=== PATIENT | female | born 1965 | race Caucasian/White ===

== ENCOUNTER 2021-05-21 15:24 | Outpatient (CLI) | payer OTHER, SELFPAY ==
--- NOTE | 2021-05-21 15:27 | MM_ITS ---
WS: [email or web address] BILATERAL SCREENING MAMMOGRAM WITH FEDERICO DISPLACEMENT VIEWS. CAD PERFORMED. HISTORY: SCREENING COMPARISON: 03/03/2017 and 03/20/2013 Bilateral craniocaudal and mediolateral like views are performed. Federico displacement views in CC and MLO projection also performed. Breasts composition: There are scattered areas of fibroglandular density. Implants are retropectoral and intact. No suspicious masses or calcifications. No architectural disto rtion. MM/[place] [id number] IMPRESSION: BI-RADS: 2-Benign FOLLOW-UP: 1 Year Follow-up
== END 2021-05-21 15:25 | disposition home or self-care (01) ==
LOC: RADSHAW 15:26
PROVIDERS: PCP Electrodiagnostic Medicine; Visit Provider Electrodiagnostic Medicine
DX: Z12.31 Encounter for screening mammogram for malignant neoplasm of breast (principal)
CPT/HCPCS: 77067

== ENCOUNTER → 2022-03-09 08:44 | Outpatient (BNVA) | payer OTHER, SELFPAY | PROVIDERS: PCP Family Medicine; Visit Provider Family Medicine | DX: Z13.6 Encounter for screening for cardiovascular disorders (principal); G47.09 Other insomnia; G43.011 Migraine without aura, intractable, with status migrainosus | CPT/HCPCS: 80053; 80061; 85025 ==

== ENCOUNTER 2022-06-12 08:05 | Outpatient (CLI) | payer OTHER, SELFPAY ==
--- NOTE | 2022-06-12 08:34 | MM_ITS ---
WS: [email or web address] BILATERAL SCREENING DIGITAL BREAST MAMMOGRAPHY WITH FEDERICO DISPLACEMENT VIEWS. CAD PERFORMED. HISTORY: SCREEN COMPARISON: 05/21/2021, 03/03/2017 Bilateral craniocaudal and mediolateral oblique views are performed with tomosynthesis and SM. Federico displacement views in CC and MLO projection also performed. Breasts composition: There are scattered areas of fibroglandular density. Implants are intact and retropectoral. No mass identified. No suspicious calcifications or distortion . MM/[place] [id number] IMPRESSION: BI-RADS: 2-Benign FOLLOW-UP: 1 Year Follow-up
== END 2022-06-12 08:06 | disposition home or self-care (01) ==
LOC: RAD 08:06
PROVIDERS: PCP Family Medicine; Visit Provider Family Medicine
DX: Z12.31 Encounter for screening mammogram for malignant neoplasm of breast (principal)
CPT/HCPCS: 77063; 77067

== ENCOUNTER 2022-06-25 14:37 | Outpatient (CLI) | payer OTHER, SELFPAY ==
--- NOTE | 2022-06-25 15:00 | XR_ITS ---
WS: [email or web address] Right foot, 3 views, 06/25/2022 Clinical Data: right heel pain Comparison: None. Findings: No fractures or dislocations are seen. No bone destruction or erosion is noted. There is a small buni on at the head of the right first metatarsal.There is a plantar spur. XR/XR foot RT min 3V* [id number] Impression: Small bunion of the right first metatarsal.
== END 2022-06-25 14:38 | disposition home or self-care (01) ==
LOC: RAD 14:40
PROVIDERS: PCP Family Medicine; Visit Provider Family Medicine
DX: M79.671 Pain in right foot (principal); M21.611 Bunion of right foot
CPT/HCPCS: 73630

== ENCOUNTER 2022-06-30 13:47 | Outpatient (CLI) | payer OTHER, SELFPAY | END 2022-06-30 13:48 | disposition home or self-care (01) | LOC: SPT 13:48 | PROVIDERS: PCP Family Medicine; Visit Provider Podiatrist Foot & Ankle Surgery | DX: Z46.89 Encounter for fitting and adjustment of other specified devices (principal); M72.2 Plantar fascial fibromatosis | CPT/HCPCS: 97760; L4397 ==

== ENCOUNTER → 2023-02-26 10:35 | Outpatient (BNVA) | payer OTHER, SELFPAY | PROVIDERS: PCP Family Medicine; Visit Provider Family Medicine | DX: N39.44 Nocturnal enuresis (principal); Z13.6 Encounter for screening for cardiovascular disorders | CPT/HCPCS: 80053; 80061; 81000; 85025 ==

== ENCOUNTER 2023-06-22 11:11 | Outpatient (CLI) | payer OTHER, SELFPAY ==
--- NOTE | 2023-06-22 11:15 | MM_ITS ---
WS: [email or web address] BILATERAL 3D TOMOSYNTHESIS DIGITAL SCREENING MAMMOGRAPHY WITH CAD CLINICAL INFORMATION: SCREENING HISTORY: Screening mammogram. No current complaints. COMPARISON: 2021 TECHNIQUE: Bilateral CC and MLO views. FINDINGS: Stable bilateral retropectoral breast implants. Scattered fibroglandular densities bilaterally. No suspicious focal mass, asymmetry, calcifications, or architectural distortion. No evidence of malignancy. IMPRESSION: MM/[place] [id number] BI-RADS: 2-Benign FOLLOW UP: 1 Year Follow-up Recommend return to annual screening mammography.
== END 2023-06-22 11:12 | disposition home or self-care (01) ==
PROVIDERS: PCP Family Medicine; Visit Provider Family Medicine
DX: Z12.31 Encounter for screening mammogram for malignant neoplasm of breast (principal)
CPT/HCPCS: 77063; 77067

== ENCOUNTER → 2024-03-23 10:39 | Outpatient (BNVA) | payer OTHER, SELFPAY | PROVIDERS: PCP Family Medicine; Visit Provider Family Medicine | DX: K21.9 Gastro-esophageal reflux disease without esophagitis (principal) | CPT/HCPCS: 80053; 80061; 83036; 84439; 84443; 85025 ==

== ENCOUNTER 2024-03-28 08:49 | Outpatient (CLI) | payer OTHER, SELFPAY ==
--- NOTE | 2024-03-28 08:58 | XR_ITS ---
WS: [email or web address] XR hip BI m 5V wo/w pel* [id number] REASON FOR EXAM: bilaterla hip pain FINDINGS: RIGHT HIP: No fracture or focal bone lesion. Mild narrowing of the hip joint space with mild subchondral sclerosis and osteophytosis of the acetab ulum. Mild osteophytosis of the femoral head. No soft tissue abnormality. XR/XR hip BI m 5V wo/w pel* [id number] IMPRESSION: Mild osteoarthritis of the right hip. LEFT HIP: No fracture or focal bone lesion. Mild narrowing of the joint space with mild subchondral sclerosis and osteophyt osis of the acetabulum. No soft tissue abnormality. IMPRESSION: Mild osteoarthritis in the left hip.
== END 2024-03-28 08:50 | disposition home or self-care (01) ==
LOC: RAD 08:51
PROVIDERS: PCP Family Medicine; Visit Provider Family Medicine
DX: S73.192A Other sprain of left hip, initial encounter (principal); X58.XXXA Exposure to other specified factors, initial encounter; M16.11 Unilateral primary osteoarthritis, right hip; M25.551 Pain in right hip
CPT/HCPCS: 73523

== ENCOUNTER 2025-01-17 10:25 | Outpatient (CLI) | payer OTHER, SELFPAY ==
--- NOTE | 2025-01-17 10:40 | MM_ITS ---
WS: [email or web address] BILATERAL SCREENING DIGITAL BREAST MAMMOGRAPHY WITH FEDERICO DISPLACEMENT VIEWS. CAD PERFORMED. HISTORY: screening COMPARISON: 06/22/2023, 06/12/2022 Bilateral craniocaudal and mediolateral oblique views are performed with tomosynthesis and SM. Federico displacement views in CC and MLO projection also performed. Breasts composition: There are scattered areas of fibroglandular density. New asymmetry measuring 7 x 4 x 8 mm in the anterior RIGHT breast just lateral to the nipple line. Additional asymmetry LEFT retroareolar breast. There is increased soft tissue which needs to be further evaluated. No suspicious grouping of calcifications. MM/MM diag BI tomosynthesis [id number] IMPRESSION: BI-RADS: 0 - Incomplete: Need additional imaging evaluation. FOLLOW-UP: Need Additional Imaging Bilateral breast: Spot compression views (CC and MLO). True ML. Ultrasound to f soledad if abnormality persists.
== END 2025-01-17 10:26 | disposition home or self-care (01) ==
PROVIDERS: PCP Family Medicine; Visit Provider Family Medicine
DX: N64.4 Mastodynia (principal); Z12.31 Encounter for screening mammogram for malignant neoplasm of breast; R92.323 Mammographic fibroglandular density, bilateral breasts; N63.10 Unspecified lump in the right breast, unspecified quadrant; N63.20 Unspecified lump in the left breast, unspecified quadrant; M79.89 Other specified soft tissue disorders
CPT/HCPCS: 77062; G0279

== ENCOUNTER 2025-01-18 15:54 | Outpatient (CLI) | payer OTHER, SELFPAY ==
--- NOTE | 2025-01-18 16:00 | US_ITS ---
WS: [email or web address] INDICATION: RIGHT neck lump TECHNIQUE: Ultrasound RIGHT neck in the area of concern FINDINGS: Ultrasound RIGHT neck in the area of concern adjacent to the clavicle. Hypoechoic ovoid nodule in the area of concern measuring 1.2 x 0.5 x 1.0 cm. This is indeterminate and may represent a lymph node or small cystic lesion. No internal vascularity. Smaller similar-appearing ovoid lesion measuring 8 x 7 x 6 mm in this area. Recommend further evaluation with contrast-enhanced neck CT. US/US soft tissue head neck [id number] IMPRESSION: Recommend further evaluation of the above indeterminant lesions wit h contrast-enhanced neck CT.
== END 2025-01-18 15:55 | disposition home or self-care (01) ==
LOC: RAD 15:55
PROVIDERS: PCP Family Medicine; Visit Provider Family Medicine
DX: D17.9 Benign lipomatous neoplasm, unspecified (principal)
CPT/HCPCS: 76536

== ENCOUNTER 2025-01-26 06:20 | Outpatient (CLI) | payer OTHER, SELFPAY ==
[2025-01-26] MEDS: iohexol 350 mg/mL 500 mL Btl (per mL) IV (06:29)
--- NOTE | 2025-01-26 06:30 | CT_ITS ---
WS: [email or web address] CT NECK TECHNIQUE: Contrast-enhanced CT of the neck with coronal and sagittal reformatted images. CLINICAL INFORMATION: neck mass, indetermient mass COMPARISON: 2018 DLP: 236.[address] scans at [facility] use at least one of these dose optimization techniques: automated exposure control; mA and/or kV adjustment per patient size (includes targeted exams where dose is matched to clinical indication); or iterative reconstruction. FINDINGS: In the area of concern RIGHT lower neck just superior to the RIGHT clavicle is an ovoid enhancing lesion measuring 2.5 x 1.2 cm directly abutting the sternocleidomastoid. This is unchanged in appearance since 2018. A few slightly prominent lymph nodes along the distal clavicle although not pathologically enlarged. Paranasal sinuses and mastoid air cells are well aerated. Parotid glands are normal. Submandibular glands are normal. Normal posterior nasopharynx. Normal parapharyngeal fat. No evidence of supraglottic or glottic mass. Normal subglottic airway. Normal aortic arch. Lung apices are well aerated. Moderate spondylitic changes cervical spine with prior ACDF C5-6. CT/CT neck w con* [id number] IMPRESSION: 1. Ovoid enhancing nodule in the area of concern abutting the RIGHT sternoclei domastoid. This is unchanged since 2018 which is reassuring. This is technicall y indeterminant but differential considerations include vascular malformation s uch as hemangioma, spinal accessory lymph node, branchial cleft cyst, or possib ly a nerve sheath tumor such as schwannoma or neurofibroma. A few tiny feeding vessels in this area. This can be followed up in 6 months with the neck CT to c onfirm continued stability 2. MRI of the neck without and with gadolinium enhancement may add additional information if indicated 3. A few prominent lymph nodes in the supraclavicular and sternoclavicular are a also in the area of concern although not pathologically enlarged most likely reactive. 4. No other acute findings.
[2025-01-26 07:55] LABS: Blood Urea Nitrogen 15 mg/dL (8-23); Glomerular Filtration Rate 63.7 mL/min (90-130)
== END 2025-01-26 06:21 | disposition home or self-care (01) ==
PROVIDERS: PCP Family Medicine; Visit Provider Family Medicine
DX: D17.0 Benign lipomatous neoplasm of skin and subcutaneous tissue of head, face and neck (principal)
CPT/HCPCS: 70491; 82565; 84520

== ENCOUNTER 2025-02-01 07:19 | Outpatient (CLI) | payer OTHER, SELFPAY ==
--- NOTE | 2025-02-01 07:15 | MR_ITS ---
WS: [email or web address] MRI CERVICAL SPINE NONCONTRAST TECHNIQUE: Sagittal T1, T2 and STIR imaging. Axial T2, gradient, and fiesta imaging. CLINICAL INFORMATION: M54.12 - Radiculopathy, cervical region COMPARISON: MRI 2012. FINDINGS: Straightening of the normal cervical lordosis. ACDF C5-6. Cord signal is normal. No high-grade central canal stenosis. Tiny central protrusion T2-3 similar to previous. Slight anterolisthesis C7 on T1 and T1 on T2 has progressed since 2012. C2-C3: Moderate facet arthropathy. Mild RIGHT bony foraminal narrowing. C3-C4: Mild disc bulging with slight contact of the RIGHT ventral cervical cord. Mild central canal stenosis. This is slightly progressed compared to previous. Advanced RIGHT greater than LEFT facet arthropathy. Moderate RIGHT bony foraminal narrowing. C4-C5: Postoperative changes ACDF. Moderate facet arthropathy. Spinal canal is patent. Moderate RIGHT bony foraminal narrowing. C5-C6: ACDF. Moderate facet arthropathy. Moderate RIGHT bony foraminal narrowing. C6-C7: Mild disc bulging similar to previous. Mild central canal stenosis. Moderate to severe bilateral bony foraminal narrowing appears progressed. This is worse on the LEFT. Uncovertebral joint hypertrophy. C7-T1: Grade 1 anterolisthesis is progressed. Mild LEFT greater than RIGHT bony foraminal narrowing. Spinal canal is patent. Severe RIGHT T2-3 foraminal narrowing only covered on the sagittal imaging with a RIGHT foraminal protrusion filling the proximal neural foramen. This is stable in appearance compared to 2012. Visualized brain stem structures: Normal. Prevertebral soft tissues: Normal. MR/MR cervical spin wo con* [id number] IMPRESSION: 1. Straightening of the normal cervical lordosis. Prior ACDF C5-6. 2. Disc protrusion T2-3 similar to previous with a RIGHT foraminal protrusion with severe RIGHT proximal foraminal narrowing. This is only covered on the sag ittal imaging but similar to previous. 3. Mild central canal stenosis C3-4 with a tiny RIGHT paracentral disc osteoph yte protrusion progressed compared to previous. 4. Mild central canal stenosis C6-7 appears stable. 5. Moderate to severe LEFT greater than RIGHT C6-7 foraminal narrowing appears progressed. 6. Moderate RIGHT C3-4 foraminal narrowing with advanced RIGHT facet arthropat hy. 7. Moderate RIGHT C4-5 foraminal narrowing with moderate to advanced facet art hropathy. 8. Moderate RIGHT C5-6 bony foraminal narrowing.
== END 2025-02-01 07:20 | disposition home or self-care (01) ==
PROVIDERS: PCP Family Medicine; Visit Provider Anesthesiology Pain Medicine
DX: M54.12 Radiculopathy, cervical region (principal); R93.7 Abnormal findings on diagnostic imaging of other parts of musculoskeletal system; Z98.1 Arthrodesis status; M51.24 Other intervertebral disc displacement, thoracic region; M48.04 Spinal stenosis, thoracic region; M48.02 Spinal stenosis, cervical region; M47.892 Other spondylosis, cervical region; M50.31 Other cervical disc degeneration, high cervical region; M47.812 Spondylosis without myelopathy or radiculopathy, cervical region; M50.323 Other cervical disc degeneration at C6-C7 level; M43.13 Spondylolisthesis, cervicothoracic region; M48.03 Spinal stenosis, cervicothoracic region
CPT/HCPCS: 72141

== ENCOUNTER 2025-02-05 08:34 | Outpatient (CLI) | payer OTHER, SELFPAY ==
--- NOTE | 2025-02-05 08:30 | MM_ITS ---
WS: [email or web address] ADDITIONAL VIEWS BILATERAL MAMMOGRAM WITH DIGITAL BREAST TOMOSYNTHESIS, with implant displacement views. HISTORY: Abnormalities noted on screening mammogram. COMPARISON: 01/17/2025, 06/22/2023 Spot compression views RIGHT and LEFT breasts in CC, MLO projections and true ML submitted with digital breast tomosynthesis and SM. Breast composition: There are scattered areas of fibroglandular density. RIGHT: Mass identified of increased density and slightly nodular borders measuring 8 x 8 x 6 mm in the anterior RIGHT breast near 10:00. Ultrasound to follow. LEFT: Persistent thickening in the retroareolar region. This will be further evaluated by ultrasound. Bilateral breast ultrasound, limited. RIGHT: Hypoechoic mass taller than it is wide anterior RIGHT breast at 10:00. Mass measures 0.6 x 0.7 x 0.8 cm and does contain increased vascularity. LEFT breast: No mass or abnormality noted in the retroareolar region of the LEFT breast. There are few some minimally prominent ducts with debris. MM/MM diag BI tomosynthesis [id number] IMPRESSION: BI-RADS: 4 - Suspicious Finding - Biopsy Should Be Considered. FOLLOW UP: Biopsy Recommended Biopsy recommended RIGHT breast mass. Notified Chandan Milian MD at 02/05/2025 9:26 AM.
--- NOTE | 2025-02-05 08:39 | US_ITS ---
WS: [email or web address] ADDITIONAL VIEWS BILATERAL MAMMOGRAM WITH DIGITAL BREAST TOMOSYNTHESIS, with implant displacement views. HISTORY: Abnormalities noted on screening mammogram. COMPARISON: 01/17/2025, 06/22/2023 Spot compression views RIGHT and LEFT breasts in CC, MLO projections and true ML submitted with digital breast tomosynthesis and SM. Breast composition: There are scattered areas of fibroglandular density. RIGHT: Mass identified of increased density and slightly nodular borders measuring 8 x 8 x 6 mm in the anterior RIGHT breast near 10:00. Ultrasound to follow. LEFT: Persistent thickening in the retroareolar region. This will be further evaluated by ultrasound. Bilateral breast ultrasound, limited. RIGHT: Hypoechoic mass taller than it is wide anterior RIGHT breast at 10:00. Mass measures 0.6 x 0.7 x 0.8 cm and does contain increased vascularity. LEFT breast: No mass or abnormality noted in the retroareolar region of the LEFT breast. There are few some minimally prominent ducts with debris. US/US breast BI limited* [id number] IMPRESSION: BI-RADS: 4 - Suspicious Finding - Biopsy Should Be Considered. FOLLOW UP: Biopsy Recommended Biopsy recommended RIGHT breast mass. Notified Chandan Milian MD at 02/05/2025 9:26 AM.
== END 2025-02-05 08:35 | disposition home or self-care (01) ==
LOC: RAD 08:35
PROVIDERS: PCP Family Medicine; Visit Provider Family Medicine
DX: N63.11 Unspecified lump in the right breast, upper outer quadrant (principal)
CPT/HCPCS: 76642; 77062; G0279

== ENCOUNTER 2025-02-13 07:31 | Day surgery (SDC) | payer OTHER, SELFPAY ==
[2025-02-13 07:55] VITALS: BP 113/73; PULSE 78; RESP 18; TEMP 36.3; O2SAT 96; BMI 26.6
[2025-02-13] MEDS: sodium chloride 0.9% 1,000 ML 15 ML IV (08:09)
--- NOTE | 2025-02-13 08:10 | ANES.PREANE2 ---
Pre-Anesthetic Assessment Height/Weight: Height 1.73 m Weight 79.379 kg Temp Pulse Resp BP Pulse Ox O2 Del Method 97.4 F L 78 18 113/73 96 Room Air 02/13/25 07:55 02/13/25 07:55 02/13/25 07:55 02/13/25 07:55 02/13/25 07:55 02/13/25 07:55 Operation Date: 02/13/25 08:30 Proposed Procedures p Colonoscopy 22036 G0121 Z12.11(Not Applicable) - Adelfo Currie MD Familial anesthetic complications: None Was Beta Jacqueline taken within 24 hours: Yes Was Clonidine taken within 24 hours: N/A Last intake: Intake Last Liquid Date 02/12/25 Last Liquid Time 22:00 Last Solid Date 02/11/25 Last Solid Time 19:00 Social No alcohol and No tobacco Exam alert, oriented x 3, clear to auscultation bilaterally and regular rate & rhythm Airway Mallampati: Class I Dentition: partials Pulmonary Asthma and Chronic Obstructive Pulmonary Disease GI Gastroesophageal Reflux Disease Anesthetic Plan ASA status: 3 Anesthesia: MAC Risk of > 500 ml blood loss (7ml/kg in children): No Medications/Allergies Home Medications ?Medication ?Instructions ?Recorded ?Confirmed ?Last Taken ?Type diclofenac sodium 75 mg 75 mg PO BID #60 tabs 01/08/25 02/13/25 02/12/25 Rx tablet,delayed release propranolol 20 mg tablet 20 mg PO BID #120 tabs 01/08/25 02/13/25 02/12/25 Rx sumatriptan succinate 100 mg tablet See Rx Instructions .Route 01/08/25 02/13/25 02/11/25 Rx .COMPLEX #9 ea semaglutide [Ozempic] 1 dose SUBCUT .WEEKLY 01/18/25 02/13/25 02/02/25 History gabapentin 300 mg capsule 300 mg PO TID #90 caps 02/05/25 02/13/25 02/12/25 Rx albuterol sulfate 90 mcg/actuation 2 puff inhalation DAILY PRN 02/08/25 02/13/25 02/12/25 History aerosol inhaler Shortness Of Breath Or Wheezing budesonide-formoterol HFA 160 2 puff inhalation BID 02/08/25 02/13/25 02/12/25 History mcg-4.5 mcg/actuation aerosol inhaler eszopiclone 2 mg tablet (Lunesta) 2 mg PO DAILY 02/08/25 02/13/25 02/12/25 History fluoxetine 20 mg capsule 20 mg PO DAILY 02/08/25 02/13/25 02/12/25 History fluoxetine 40 mg capsule 40 mg PO DAILY 02/08/25 02/13/25 02/12/25 History pantoprazole 40 mg tablet,delayed 40 mg PO DAILY 02/08/25 02/13/25 02/12/25 History release ondansetron HCl 4 mg tablet 4 mg PO Q6H PRN Nausea And Vomiting 02/12/25 02/13/25 02/12/25 History Allergies Allergy/AdvReac Type Severity Reaction Status Date / Time Penicillins Allergy Intermediate ADR/ALGY-Pa Verified 02/08/25 08:42 lpitations Current Medications Generic Name Dose Route Start Last Admin Trade Name Freq PRN Reason Stop Dose Admin Sodium Chloride 1,000 mls @ 15 mls/hr 02/13/25 07:42 02/13/25 08:09 Sodium Chloride 0.9% IV 02/14/25 07:41 15 mls/hr .Q24H PRN Administration COLONOSCOPY FLUIDS PFSH Anesthesia Medical History Lipoma Chronic migraine Depression Seasonal allergies GERD (gastroesophageal reflux disease) Chronic neck pain Chronic shoulder pain Insomnia Surgical History History of neck surgery Fusion of C4-C6 History of shoulder surgery Bilateral - rotator cuff repair on right. History of partial hysterectomy Due to menorrhagia History of elective breast augmentation Family History Other CAD (coronary artery disease) Cancer Dementia Diabetes Hyperlipidemia Hypertension Stroke Denies family history of Clotting disorder Psychiatric illness Chronic kidney disease (CKD) Suicide Anesthesia complication Bleeding disorder Family history of premature coronary artery disease Lung disease Social History Smoking and tobacco/nicotine status: former use of tobacco/nicotine Alcohol intake: current Alcohol intake frequency: holidays/special occasions only Substance/Drug Use: never Adopted: No Caregiver/support person: No Lives independently: Yes Housing: House Marital status: /
--- NOTE | 2025-02-13 08:20 | W.PM.OPSUD ---
Surgery/Procedure H&P Update DATE OF PROCEDURE: February 13, 2025 DATE H&P PERFORMED: 01/18/25 H&P UPDATE INFORMATION: I have reviewed H&P completed within last 30 days, I have examined patient prior to procedure and No changes to prior documentation PLANNED PROCEDURE: Operation Date: 02/13/25 08:30 Proposed Procedures p Colonoscopy 72544 G0121 Z12.11(Not Applicable) - Adelfo Currie MD
--- NOTE | 2025-02-13 08:31 | PC.NURSE ---
Cecum time 0831
[2025-02-13 08:49] VITALS: BP 101/65; PULSE 72; RESP 18; TEMP 453.8; TEMP 849; O2SAT 98
--- NOTE | 2025-02-13 08:53 | ANE.PACU2 ---
Inpatient post-anesthesia follow up: Airway intact: Yes Vital signs: Temperature 97.4 F Pulse Rate 78 Respiratory Rate 18 Blood Pressure 113/73 Pulse Oximetry 96 Oxygen Delivery Me thod Room Air Oxygen Flow Rate Fraction of Inspir ed Oxygen Hydration adequate: Yes Nausea and vomiting: No Pain level: 1 Mental status: Baseline
[2025-02-13 09:17] VITALS: BP 110/71; PULSE 68; RESP 18; O2SAT 98
== END 2025-02-13 09:21 | disposition home or self-care (01) ==
PROVIDERS: PCP Family Medicine; Visit Provider Student in an Organized Health Care Education/Training Program
PROC: 0DJD8ZZ Inspection of Lower Intestinal Tract, Via Natural or Artificial Opening Endoscopic (ICD-10-PCS; CPT 45378; principal; 2025-02-13 08:30)
DX: Z12.11 Encounter for screening for malignant neoplasm of colon (principal); D12.4 Benign neoplasm of descending colon; K62.1 Rectal polyp; K57.30 Diverticulosis of large intestine without perforation or abscess without bleeding; J44.9 Chronic obstructive pulmonary disease, unspecified; K21.9 Gastro-esophageal reflux disease without esophagitis; J45.909 Unspecified asthma, uncomplicated; Z79.85 Long-term (current) use of injectable non-insulin antidiabetic drugs; Z79.899 Other long term (current) drug therapy; Z88.0 Allergy status to penicillin; Z87.891 Personal history of nicotine dependence
CPT/HCPCS: 45385; 88305; J2704; J7030

== ENCOUNTER → 2025-02-15 14:42 | Outpatient (BNVA) | payer OTHER, SELFPAY | PROVIDERS: PCP Family Medicine; Visit Provider Orthopaedic Surgery | DX: M54.2 Cervicalgia (principal); G89.29 Other chronic pain | CPT/HCPCS: 72050 ==

== ENCOUNTER 2025-02-21 10:51 | Outpatient (CLI) | payer OTHER, SELFPAY ==
--- NOTE | 2025-02-21 11:45 | US_ITS ---
WS: [email or web address] ULTRASOUND-GUIDED RIGHT BREAST BIOPSY HISTORY: breast mass, mass localizes to 10:00, 1 cm from the nipple. COMPARISON: 02/05/2025, 01/17/2025 and 06/22/2023 Procedure, risks and complications are explained to the patient. Medications are reviewed. Consent is obtained. The mass in the RIGHT breast is localized with ultrasound. Mass localizes to 10:00, 1 cm from the nipple. Skin is cleansed with ChloraPrep and anesthetized with 1% buffered lidocaine. Small dermatome is made. Under sterile conditions mass is biopsied with a 14-gauge Achieve needle. Multiple core biopsies are performed. Material placed in formalin and sent to pathology for review. No complications encountered. Breast tissue marker (Bard ultrasound enhanced ribbon): Single. Patient left the radiology suite with no complications. [place] is [place] [facility] [place] with any concerns. US/[place] [id number] IMPRESSION: 1. Uncomplicated core needle biopsy RIGHT breast mass at 10:00. PATHOLOGY: Well differentiated invasive mammary carcinoma with favorable to int ermediate nuclear grade. Breast cancer prognostic profile will be reported sepa rately. RECOMMENDATION: Follow-up with oncology and breast surgeon.
[2025-02-27 14:54] LABS: Breast Profile ER,PR,HER2,Ki-6 See Report
== END 2025-02-21 10:52 | disposition home or self-care (01) ==
LOC: RAD 10:52
PROVIDERS: PCP Family Medicine; Visit Provider Family Medicine
DX: C50.411 Malignant neoplasm of upper-outer quadrant of right female breast (principal); R92.1 Mammographic calcification found on diagnostic imaging of breast
CPT/HCPCS: 19083; 88305; 88361; 88374

== ENCOUNTER 2025-03-12 15:04 | Oncology outpatient (recurring) (ONCR) | payer OTHER, SELFPAY ==
[2025-03-07 10:35] LABS: Hematocrit 39.9 % (36-47); Hemoglobin 12.70 g/dL (11.27-16.99); Mean Corpuscular HGB Conc 31.8 g/dL (30-55); Mean Corpuscular Hemoglobin 28.5 pg (27-33); Mean Corpuscular Volume 89.5 fl (85-98); Nucleated Red Blood Cells % 0 %; Platelet Count 269 10^3/cmm (157-399); Red Blood Count 4.46 10^6/uL (3.85-5.65); White Blood Count 5.81 10^3/uL (3.29-11.43)
[2025-03-07 10:59] LABS: Alanine Aminotransferase 30 U/L (0-33); Albumin Level 4.2 g/dL (3.5-5.2); Alkaline Phosphatase 96 U/L (35-105); Anion Gap 13.5 (5-19); Aspartate Amino Transferase 21 U/L (0-32); Blood Urea Nitrogen 22 mg/dL (8-23); CA 15-3 20.4 U/mL (0-25); Calcium 9.0 mg/dL (8.5-10.5); Carbon Dioxide 29 mmol/L (22-29); Chloride 101 mmol/L (98-107); Creatinine Clr Calc Pharmacy 83.1933; Globulin 2.4 g/dL (1.3-4.6); Glucose 95 mg/dL (65-115); Osmolality Calculated 291 mOsm/kg (285-295); Potassium 4.5 mmol/L (3.5-5.1); Sodium 139 mmol/L (136-145); Total Protein 6.6 g/dL (6.6-8.7)
--- NOTE | 2025-03-09 15:00 | PETR_ITS ---
PROCEDURE INFORMATION: Exam: PET/CT Skull Base to Mid-thigh Exam date and time: 03/09/2025 3:41 PM Age: 59 years old Clinical indication: Condition or disease; Primary cancer: Invasive ductal carcinoma of breast, stage 1. Breast mass right; Additional info: Breast cancer staging LABS AND CLINICAL REPORTS: Glucose: 101 mg/dl Treatment strategy for malignancy (PET staging): Initial Staging (PI) TECHNIQUE: Imaging protocol: Following at least four-hour fasting and following the injection of radiopharmaceutical, low dose CT images were obtained. Then, PET images were obtained. Attenuation corrected images were constructed using the CT scan. Fused images of PET and CT were reviewed. The standardized uptake values (SUV) reported below are maximum values within a region of interest, expressed in gm/ml. Exam includes orbital meatal line to mid-thigh. SUV normalization method: BodyWeight Radiopharmaceutical: 12.2 mCi F-18 FDG (Fluorodeoxyglucose), IV. Time of imaging post radiopharmaceutical administration: 43 minutes Injection site: LAC COMPARISON: 1. CT neck w con* [id number] 01/26/2025 6:[address] of the neck dated 04/21/2018. FINDINGS: Brain: Visualized brain has normal physiologic uptake. Pharynx: No abnormal uptake. Larynx: No abnormal uptake. Lungs, pleura and trachea: No abnormal uptake. Heart: Normal physiologic uptake. Mediastinal space: No abnormal uptake. Liver: No abnormal uptake. Gallbladder and biliary ducts: No abnormal uptake. Pancreas: No abnormal uptake. Spleen: No abnormal uptake. Adrenal glands: No abnormal uptake. Kidneys and ureters: Normal physiologic uptake. Stomach and bowel: No abnormal uptake. Vasculature: No abnormal uptake. Lymph nodes: No abnormal uptake. No lymphadenopathy in the head, neck, chest, abdomen, pelvis, and extremities. Skeleton: No abnormal uptake in the visualized axial and appendicular skeleton. Soft tissues: No abnormal uptake in the visualized head, neck, chest, abdomen, pelvis, and extremities. Bilateral breast implants. No abnormal FDG uptake. Redemonstrated low-attenuation lesion anterior to the right sternocleidomastoid muscle, unchanged in appearance since 2018. There is FDG uptake within this lesion, maximum SUV 3.4. METRICS: Mediastinal blood pool: Mean SUV of 2.0 Liver uptake: Mean SUV of 3.1 PET/PET skull to thigh INIT [id number] IMPRESSION: 1. No evidence of residual malignancy within the right breast. 2. Unchanged low-attenuation lesion anterior to the right sternocleidomastoid muscle, stable since 2018. This lesion does demonstrates some FDG uptake, which may be seen with some neurofibromas or schwannomas. Further assessment with dedicated contrast-enhanced MRI is recommended, if not previously obtained. 3. Otherwise, no functional or anatomic evidence of metastatic disease.
--- NOTE | 2025-03-12 15:00 | XR_ITS ---
WS: [email or web address] DEXA (DUAL ENERGY X-RAY ABSORPTIOMETRY) Bone mineral density was performed using a Curasight machine. HISTORY: breast cancer COMPARISON: None available. Lumbar spine BMD (L1-L4): 1.458 g/cm2 T score: 2.3 Z score: 3.1 Total hip BMD: Left: 1.112 g/cm2. T score: 0.8 Z score: 1.4 Right: 1.157 g/cm2. T score: 1.2 Z score: 1.8 10 year probability of a major osteoporotic fracture is 10.3%. XR/XR DEXA axial skeleton* [id number] IMPRESSION: NORMAL BONE MINERAL DENSITY based upon the WHO classification for females.
== END 2025-03-22 23:59 | disposition home or self-care (01) ==
LOC: RAD 03-13 00:01
PROVIDERS: PCP Family Medicine; Visit Provider Internal Medicine
DX: C50.919 Malignant neoplasm of unspecified site of unspecified female breast; N63.10 Unspecified lump in the right breast, unspecified quadrant; Z53.9 Procedure and treatment not carried out, unspecified reason
CPT/HCPCS: 36415; 77080; 78815; 80053; 83615; 85025; 85651; 86140; 86300; A9552

== ENCOUNTER 2025-04-18 10:33 | Oncology outpatient (recurring) (ONCR) | payer OTHER, SELFPAY ==
[2025-04-18 12:35] LABS: Hematocrit 38.0 % (36-47); Hemoglobin 12.10 g/dL (11.27-16.99); Mean Corpuscular HGB Conc 31.8 g/dL (30-55); Mean Corpuscular Hemoglobin 28.4 pg (27-33); Mean Corpuscular Volume 89.2 fl (85-98); Nucleated Red Blood Cells % 0 %; Platelet Count 259 10^3/cmm (157-399); Red Blood Count 4.26 10^6/uL (3.85-5.65); White Blood Count 6.52 10^3/uL (3.29-11.43)
[2025-04-18 12:51] LABS: Alanine Aminotransferase 14 U/L (0-33); Albumin Level 4.1 g/dL (3.5-5.2); Alkaline Phosphatase 92 U/L (35-105); Anion Gap 11.3 (5-19); Aspartate Amino Transferase 19 U/L (0-32); Blood Urea Nitrogen 20 mg/dL (8-23); Calcium 8.9 mg/dL (8.5-10.5); Carbon Dioxide 30 mmol/L (22-29); Chloride 100 mmol/L (98-107); Creatinine Clr Calc Pharmacy 95.8033; Globulin 2.4 g/dL (1.3-4.6); Glucose 116 mg/dL (65-115); Osmolality Calculated 288 mOsm/kg (285-295); Potassium 4.3 mmol/L (3.5-5.1); Sodium 137 mmol/L (136-145); Total Protein 6.5 g/dL (6.6-8.7)
== END 2025-04-22 23:59 | disposition home or self-care (01) ==
PROVIDERS: PCP Family Medicine; Visit Provider Internal Medicine
DX: Z12.11 Encounter for screening for malignant neoplasm of colon (principal); Z12.31 Encounter for screening mammogram for malignant neoplasm of breast; C50.411 Malignant neoplasm of upper-outer quadrant of right female breast; Z17.0 Estrogen receptor positive status [ER+]
CPT/HCPCS: 36415; 80053; 83615; 85025

== ENCOUNTER 2025-05-22 08:33 | Oncology outpatient (recurring) (ONCR) | payer OTHER, SELFPAY ==
--- NOTE | 2025-04-25 11:45 | N.ONRAD NP_ITS ---
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 RT BREAST, UOQ, WD-ICD, 1.2X1X 0.8 CM, ER99/PR99+, H2N-, MED/ANT MARGINS CLOEST 3 MM, SPECIMEN SIZE 4.3x3.7x2cm, ONCOTYPE DX 19- < 1% CHEMO EFFECT, ON ANASTRAZOLE, 38DD, BL IMPLANTS AT29YO AND REPLACED 7 YRS AGO. STAGE: [id number] ICD-10: C50.411 Radiotherapy to date: Summary > No prior radiation therapy. Chief Complaint / History of Present Illness: Patient seen for consideration of adjuvant XRT to the RIGHT BREAST. This is a pleasant 59-year-old female with recent diagnosis of RIGHT BREAST CA. MAMMOGRAM on 02/05/2025 showed a right breast UOQ mass 0.6 x 0.7 x 0.8 cm with increased vascularity. BX on 02/21/2025 showed WD, IDC measuring 0.8 cm ER 99/NH 99 and H2N-, & KI-67 3% . PET/CT on 03/09/2025 no residual malignancy in the right breast noted. DEXA scan 03/12/2025 normal RIGHT BREAST LUMPECTOMY/SLN on 03/27/2025 showed a 1 cm tumor that was noted to be WD-IDC, SLN 0/1, right UOQ, ER/NH 99%, H2 N-, closest margin is medial anterior 3 mm, Oncotype DX 19 showing < 1% chemo effect BRA SIZE 38DD Current Medications: albuterol sulfate 90 mcg/actuation 2 puffs inhalation DAILY PRN budesonide-formoterol 160-4.5 mcg/actuation 2 puffs inhalation BID diclofenac sodium 75 mg PO BID duloxetine (Cymbalta) 30 mg PO DAILY eszopiclone (Lunesta) 2 mg PO DAILY fluoxetine 40 mg PO DAILY fluoxetine 20 mg PO DAILY gabapentin 300 mg PO TID ondansetron HCl 4 mg PO Q6H PRN pantoprazole 40 mg PO DAILY propranolol 20 mg PO BID semaglutide (Ozempic) 1 dose SUBCUT .WEEKLY sumatriptan succinate TAKE 1 TABLET BY MOUTH at ONSET of HEADACHE, if no RELIEF, MAY REPEAT ONE tablet AFTER at least TWO hours. max of TWO tablets in 24 hours Allergies: Penicillins Allergy ADR/ALGY-Palpitations Medical History: Lipoma Chronic migraine Depression Seasonal allergies GERD (gastroesophageal reflux disease) Chronic neck pain Chronic shoulder pain Insomnia Surgical History: History of neck surgery Fusion of C4-C6 History of shoulder surgery Bilateral - rotator cuff repair on right. History of partial hysterectomy Due to menorrhagia History of elective breast augmentation Family History: CAD (coronary artery disease) Cancer paternal aunts x 4 breast cancer to under 50 years of age at diagnosis all of their disease. Dementia Diabetes Hyperlipidemia Hypertension Stroke Denies family history of Clotting disorder Psychiatric illness Chronic kidney disease (CKD) Suicide Anesthesia complication Bleeding disorder Family history of premature coronary artery disease Lung disease Social History: Smoking and tobacco/nicotine status: former use of tobacco/nicotine Alcohol intake: current Alcohol intake frequency: holidays/special occasions only Substance/Drug Use: never Adopted: No Caregiver/support person: No Lives independently: Yes Housing: House Marital status: / Dietary Habits Caffeine: Yes Caffeine intake frequency: carbonated beverages Current Complaints / Review of Systems: .As above Vital Signs: Performed on 04/25/2025 10:44 AM BMI - 28.555 kg/m2 (high), Height - 68 in, Weight - 187.8 lbs, Temperature - 97.1 f, Pulse - 65 /min, Respiration - 18 /min, O2 Sat - 95 % (low), Pain - 5, Fatigue - 0 and BP - 116/ 74 mm(hg). Physical Exam: Alert and oriented and answers questions appropriately. Neck is supple thyroid midline. Chest lungs are clear to auscultation heart is regular rate and rhythm without murmurs gallops or rubs. Abdomen soft nontender with no rebound or guarding noted. Umbilical piercing noted. Breast intact times 2 with the notable implants. Right breast bigger than the left inverted left nipple noted no masses appreciated in either breast. Right cyst curvilinear scar in the nipple areolar complex measuring 5 cm. Axillary incision well-healed except. Extremities intact x 4. Vertebral exam shows no bony tenderness. Performance Status: KPS 90 Pathology: Primary, c50.411 - malignant neoplasm of upper-outer quadrant of right female breast, Diagnosed 04/25/2025 (active) . 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 RT BREAST, UOQ, WD-ICD, 1CM, ER99/PR99+, H2N-, MED/ANT MARGINS CLOEST 3 MM, ONCOTYPE DX 19- < 1% CHEMO EFFECT, ON ANASTRAZOLE, 38DD, BL IMPLANTS AT29YO AND REPLACED 7 YRS AGO. STAGE: [id number] ICD-10: C50.411 Plan: Options were discussed in detail with the patient and family. Patient needs a little more time healing CT SIM on 04/26/2025 Plan 5256 cGy in 20 fractions to include a 4 fraction boost Commence treatment on 05/07/2025 Continue anastrozole Signed by: 04/26/2025 1:56:15 PM <<Signature on File>> Time spent with patient/carlos/daughter/record review/report prep : 60 minutes CPT Code: CPT Code:
--- NOTE | 2025-05-08 13:27 | ONCRAD TMN_ITS ---
Radiation Oncology Weekly Treatment Management Patient: Gabby Harrell MR#: [id number] : 1965 Attending Physician: Joaquin Harvey Date of Service: 05/08/2025 Referring Physician(s) : Diagnosis: C50.411 - Malignant neoplasm of upper-outer quadrant of right female breast, Diagnosed 04/25/2025 (Active) Radiotherapy to date: Course: rt breast, Treatment Site: Breast Rt, Ref. ID: Breast_R, Energy: 15X/6X, Dose/Fx (cGy): 266, #Fx: , Dose Correction (cGy): 0, Total Dose Delivered (cGy): 532, Start Date: 05/07/2025, Elapsed Days: 1 Reason for visit: The patient is being seen today as part of their regularly scheduled weekly on treatment visits to assess for acute toxicities from radiotherapy. Review of Systems: No voiced complaints. She will start using creams today and has various lotions at home Vital Signs: Performed on 05/08/2025 12:56 PM BMI - 28.099 kg/m2 (high), Height - 68 in, Weight - 184.8 lbs, Temperature - 96.9 f, Pulse - 93 /min, Respiration - 17 /min, O2 Sat - 96 %, Pain - 0, Fatigue - 0 and BP - 117/ 75 mm(hg). Physical Exam: AAOx3. Skin intact. Imaging: Radiation therapy imaging related to accurate target localization (i.e. KV, MV and CBCT) was reviewed. Appropriate changes, if any, were made to ensure treatment accuracy. Plan: Continue XRT. Start using creams liberally. Signed by: Joaquin Harvey 05/08/2025 1:26:32 PM
--- NOTE | 2025-05-15 13:37 | ONCRAD TMN_ITS ---
Radiation Oncology Weekly Treatment Management Patient: Julio Cesar Pierre> MR#: [id number] : 1965> Attending Physician: Joaquin Harvey Date of Service: 05/15/2025 Referring Physician(s) : Diagnosis: C50.411 - Malignant neoplasm of upper-outer quadrant of right female breast, Diagnosed 04/25/2025 (Active) Radiotherapy to date: Course: rt breast, Treatment Site: Breast Rt, Ref. ID: Breast_R, Energy: 15X/6X, Dose/Fx (cGy): 266, #Fx: 7 / 16, Dose Correction (cGy): 0, Total Dose Delivered (cGy): 1,862, Start Date: 05/07/2025, Elapsed Days: 8 Reason for visit: The patient is being seen today as part of their regularly scheduled weekly on treatment visits to assess for acute toxicities from radiotherapy. Review of Systems: Patient continues to use creams daily. Patient denies any significant problems other than some mild scar formation lateral to the incision. Vital Signs: Performed on 05/15/2025 12:42 PM BMI - 28.19 kg/m2 (high), Height - 68 in, Weight - 185.4 lbs, Temperature - 96.8 f, Pulse - 74 /min, Respiration - 18 /min, O2 Sat - 96 %, Pain - 0, Fatigue - 0 and BP - 95/ 55 mm(hg)(/low). Physical Exam: AAOx3. Skin intact. No skin erythema at this time Imaging: Radiation therapy imaging related to accurate target localization (i.e. KV, MV and CBCT) was reviewed. Appropriate changes, if any, were made to ensure treatment accuracy. Plan: Continue XRT Continue use of creams liberally. Signed by: Joaquin Harvey 05/15/2025 1:35:43 PM
--- NOTE | 2025-05-22 10:16 | ONCRAD TMN_ITS ---
Radiation Oncology Weekly Treatment Management Patient: Ham Harrell MR#: [id number] : 1965 Attending Physician: Dr. Xenia Hussein Date of Service: 05/22/2025 Chief complaint patient has not noticed any real changes with the skin but she has been much more fatigued of late Referring Physician(s) : Diagnosis: C50.411 - Malignant neoplasm of upper-outer quadrant of right female breast, Diagnosed 04/25/2025 (Active) Radiotherapy to date: Course: rt breast, Treatment Site: Breast Rt, Ref. ID: Breast_R, Energy: 15X/6X, Dose/Fx (cGy): 266, #Fx: 12 / 16, Dose Correction (cGy): 0, Total Dose Delivered (cGy): 3,192, Start Date: 05/07/2025, End Date: 05/22/2025, Elapsed Days: 15 Reason for visit: The patient is being seen today as part of their regularly scheduled weekly on treatment visits to assess for acute toxicities from radiotherapy. Review of Systems: Vital Signs: Performed on 05/22/2025 8:48 AM BMI - 28.221 kg/m2 (high), Height - 68 in, Weight - 185.6 lbs, Temperature - 96.7 f, Pulse - 71 /min, Respiration - 17 /min, O2 Sat - 95 % (low), Pain - 0 and BP - 119/ 73 mm(hg). Physical Exam: Skin on exam is without changes Imaging: Radiation therapy imaging related to accurate target localization (i.e. KV, MV and CBCT) was reviewed. Appropriate changes, if any, were made to ensure treatment accuracy. Plan: Continue with her treatments as planned Signed by: Dr. Xenia Hussein 05/22/2025 10:15:10 AM
== END 2025-05-22 23:59 | disposition home or self-care (01) ==
PROVIDERS: PCP Family Medicine; Visit Provider Radiology Radiation Oncology
DX: Z51.0 Encounter for antineoplastic radiation therapy (principal); C50.411 Malignant neoplasm of upper-outer quadrant of right female breast; Z17.0 Estrogen receptor positive status [ER+]
CPT/HCPCS: 77280; 77295; 77300; 77334; 77336; 77387; 77412

== ENCOUNTER 2025-06-04 08:26 | Oncology outpatient (recurring) (ONCR) | payer OTHER, SELFPAY ==
--- NOTE | 2025-05-29 08:54 | ONCRAD TMN_ITS ---
Radiation Oncology Weekly Treatment Management Patient: Gabby Harrell MR#: [id number] : 1965 Attending Physician: Dr. Xenia Hussein Date of Service: 05/29/2025 Referring Physician(s) : Diagnosis: C50.411 - Malignant neoplasm of upper-outer quadrant of right female breast, Diagnosed 04/25/2025 (Active) Radiotherapy to date: Course: rt breast, Treatment Site: Breast Rt, Ref. ID: Breast_R, Energy: 15X/6X, Dose/Fx (cGy): 266, #Fx: 16 / 16, Dose Correction (cGy): 0, Total Dose Delivered (cGy): 4,256, Start Date: 05/07/2025, End Date: 05/29/2025, Elapsed Days: 22 Reason for visit: The patient is being seen today as part of their regularly scheduled weekly on treatment visits to assess for acute toxicities from radiotherapy. Review of Systems: Patient continues to have reactive folliculitis in the medial upper quadrant. Is quite pruritic and tender Vital Signs: Performed on 05/29/2025 8:39 AM BMI - 28.525 kg/m2 (high), Height - 68 in, Weight - 187.6 lbs, Temperature - 96.8 f, Pulse - 68 /min, Respiration - 17 /min, O2 Sat - 98 %, Pain - 5, Fatigue - 0 and BP - 129/ 79 mm(hg). Physical Exam: The skin in the upper inner quadrants is erythematous and dry. Imaging: Radiation therapy imaging related to accurate target localization (i.e. KV, MV and CBCT) was reviewed. Appropriate changes, if any, were made to ensure treatment accuracy. Plan: Will continue with her treatments. Her boost is such that it will not include the area if she is having the most reaction with. She will continue to use her Silvadene. Signed by: Dr. Xenia Hussein 05/29/2025 8:52:54 AM
--- NOTE | 2025-06-04 09:25 | N.ONRD TS_ITS ---
Radiation Oncology Treatment Summary Patient: Julio Cesar>Gabby> MR#: [id number] : 1965> Age: 59> Sex: Female Dictated by: Joaquin Harvey Date of Service: 06/04/2025 Referring Physician(s) : Diagnosis: C50.411 - Malignant neoplasm of upper-outer quadrant of right female breast, Diagnosed 04/25/2025 (Active) Radiotherapy to Date: Course: rt breast, Treatment Site: Breast Rt, Ref. ID: Breast_R, Energy: 15X/6X, Dose/Fx (cGy): 266, #Fx: 16 / 16, Dose Correction (cGy): 0, Total Dose Delivered (cGy): 4,256, Start Date: 05/07/2025, End Date: 05/29/2025, Elapsed Days: 22 Treatment Site: RtBreastBoost, Ref. ID: CTV, Energy: 6X, Dose/Fx (cGy): 250, #Fx: 4 / 4, Dose Correction (cGy): 0, Total Dose Delivered (cGy): 1,000, Start Date: 05/30/2025, End Date: 06/04/2025, Elapsed Days: 5 Clinical Summary: The patient tolerated RT well. She has moist desquamation which is slowly resolving utilizing Silvadene. Otherwise she has no complaints Plan: End of treatment today. Continue on the above medication until the skin reaction resolves. Follow up in one month. Signed by: Joaquin Harvey>06/04/2025 9:23:55 AM <<Signature on File>>
== END 2025-06-22 23:59 | disposition home or self-care (01) ==
PROVIDERS: PCP Family Medicine; Visit Provider Radiology Radiation Oncology
DX: Z51.0 Encounter for antineoplastic radiation therapy (principal); C50.411 Malignant neoplasm of upper-outer quadrant of right female breast
CPT/HCPCS: 77336; 77387; 77412